=== PATIENT | female | born 1940 | race Caucasian/White ===

== ENCOUNTER 2016-06-18 15:08 | Emergency (ER) | payer MEDICARE, OTHER ==
[~2016-06-18] VITALS: Ht 152.4 cm; Wt 61.7 kg
[2016-06-18] MEDS ORDERED: TRAV5DRO EACHEYE (15:31)
[2016-06-18] MEDS ORDERED: VITAMIN B12 (15:31)
[2016-06-18] MEDS ORDERED: PROBIOTIC (15:31)
[2016-06-18] MEDS ORDERED: CYCL30DR (15:31)
[2016-06-18] MEDS ORDERED: GLUCOSAMINE (15:31)
[2016-06-18] MEDS ORDERED: HYDR25TA4 PO (15:31)
[2016-06-18] MEDS ORDERED: MULT1CAP34 PO (15:31)
[2016-06-18] MEDS ORDERED: TIMO5DRO31 EACHEYE (15:31)
[2016-06-18] MEDS ORDERED: AMLO5TAB2 PO (15:31)
[2016-06-18] MEDS ORDERED: CALCIUM PO (15:31)
[2016-06-18] MEDS ORDERED: LEVO75TA36 PO (15:31)
[2016-06-18] MEDS ORDERED: ATOR10TA PO (15:31)
[2016-06-18] MEDS ORDERED: ESOM40CA PO (15:31)
[2016-06-18] MEDS ORDERED: ASPI81TA31 PO (15:32)
[2016-06-18] MEDS ORDERED: ALEVE PO (15:32)
[2016-06-18] MEDS ORDERED: IV NORMAL SALINE 500 ML IV ONE (15:45)
[2016-06-18] MEDS ORDERED: ACETAMINOPHEN ES 500 MG TABLET PO ONE (15:45)
[2016-06-18 16:06] LABS: CALCIUM 9.3 mg/dL (8.5-10.1); CREATININE 0.9 mg/dL (0.6-1.3); POTASSIUM 3.3 mmol/L (3.5-5.1)
[2016-06-18] MEDS ORDERED: ACETAMINOPHEN ES 500 MG TABLET ONE (16:10)
[2016-06-18 16:11] LABS: ALBUMIN 3.6 g/dL (3.4-5.0); BILIRUBIN,TOTAL 0.6 mg/dL (0.2-1.0); TOTAL PROTEIN, SERUM 7.5 g/dL (6.4-8.2)
[2016-06-18 16:17] LABS: BASOPHILS # (AUTO) 0.1 K/uL (0.0-0.2); BASOPHILS % (AUTO) 0.6 % (0.0-2.0); EOSINOPHILS % (AUTO) 0.2 % (0.0-7.0); HEMATOCRIT 39.4 % (37.0-47.0); HEMOGLOBIN 12.8 g/dL (12.0-16.0); LYMPHOCYTES # (AUTO) 0.5 K/uL (0.8-4.8); LYMPHOCYTES % (AUTO) 4.9 % (20.5-51.5); MEAN CORPUSCULAR HEMOGLOBIN 29.7 uug (27.0-31.0); MEAN CORPUSCULAR HGB CONC 33 g/dL (32.0-37.0); MEAN CORPUSCULAR VOLUME 91.3 fL (81.0-99.0); MONOCYTES # (AUTO) 0.1 K/uL (0.1-1.30); MONOCYTES % (AUTO) 0.6 % (0.0-11.0); NEUTROPHILS # (AUTO) 10.3 K/uL (1.8-8.9); NEUTROPHILS % (AUTO) 93.7 % (38.5-71.5); PLATELET COUNT (AUTO) 393 K/uL (150-450); RED BLOOD CELL COUNT(AUTO) 4.32 MIL/uL (4.20-5.40); RED CELL DISTRIBUTION WIDTH 11.8 % (11.5-14.5)
[2016-06-18] MEDS ORDERED: IV NS 1000 ML 1,000 ML IV ONE (16:30)
[2016-06-18] MEDS ORDERED: CIPROFLOXACIN IV 400 MG in PREMIXED 1 EACH IV ONE (16:45)
[2016-06-18] MEDS ORDERED: METRONIDAZOLE 500 MG/NS 100 ML PIGGYBACK IV ONE (16:45)
[2016-06-18 16:49] LABS: BAND % (MANUAL) 15 % (0-10); LYMPHOCYTES % (MANUAL) 6 % (20-40); NEUTROPHILS % (MANUAL) 79 % (42-75); PLATELET ESTIMATE ADEQUATE
[2016-06-18] MEDS ORDERED: POTASSIUM CHLORIDE 20 MEQ TAB.PRT.SR PO ONE (17:00)
[2016-06-18] MEDS ORDERED: POTASSIUM CHLORIDE 20 MEQ TAB.PRT.SR ONE (17:08)
[2016-06-18] MEDS ORDERED: METRONIDAZOLE 500 MG/NS 100ML 100 ML IV ONE (17:08)
[2016-06-18 17:20] LABS: *BILIRUBIN,URIN NEGATIVE (NEGATIVE); *BLOOD, URINE NEGATIVE (NEGATIVE); *COLOR,URINE YELLOW (YELLOW); *KETONES,URINE NEGATIVE (NEGATIVE); *PROTEIN,URINE NEGATIVE (NEGATIVE); *UROBILINOGEN,URINE 0.2 E.U./dl (NORMAL); LEUKOCYTE ESTERASE ,URINE 1+ (NEGATIVE); NITRITE, URINE NEGATIVE (NEGATIVE); UGLUCOSE NEGATIVE (NEGATIVE)
[2016-06-18 17:27] LABS: *CLARITY,URINE SLIGHTLY HAZY (CLEAR)
[2016-06-18 17:28] LABS: MUCUS,URINE FEW /LPF (0-FEW); SQUAMOUS EPITHELIAL CELL,UR MODERATE /HPF (NONE SEEN)
[2016-06-18 18:11] LABS: ABG HCO3 22.8 mmol/L; ABG PCO2 31.2 mmHg (35.0-45.0); ABG PH 7.482 (7.350-7.450); ABG PO2 57.9 mmHg (75.0-100.0); ABG SITE RIGHT BRACHIAL; ABG TOTAL HEMOGLOBIN 11.7 G/dL (12.0-16.0); COHb 1.2 % (0.5-1.5); MetHb 0.2 % (0.0-1.5); VENT MODE ROOM AIR
--- NOTE | 2016-06-18 18:19 | NUR ---
MSE COMPLETED,ALL MEDS ADMINISTERED, PT POSITIONED FOR COMFORT.
--- NOTE | 2016-06-18 18:48 | NUR ---
MSE COMPLETED, PT HAD IV D/C'D INTACT, ACI RX X1/COPY OF ALL RESTS-EKG GIVEN. PT GOT DRESSED AND AMBULATED W/O DIFF/TOOK ALL BELONGINGS, PT'S PRTESENT.
[2016-06-18 18:50] VITALS: BP 121/58
[2016-06-18 21:04] LABS: CREATINE KINASE MB 0.8 ng/mL (0-5.0)
== END 2016-06-18 18:50 | disposition home or self-care (01) ==
LOC: ER 15:08
DX: T81.4XXA Infection following a procedure, initial encounter (principal); E87.6 Hypokalemia; E86.9 Volume depletion, unspecified; R50.9 Fever, unspecified; R91.8 Other nonspecific abnormal finding of lung field; I10 Essential (primary) hypertension; Z79.82 Long term (current) use of aspirin
CPT/HCPCS: 36415; 36600; 74022; 80053; 81001; 82550; 82553; 84484; 85025; 85610; 87040; 93005; 96361; 96365; 96375; 99285; A4663; J0744; J3490; J7030; J7040; 70030-TC